=== PATIENT | male | born 1995 | race American Indian/Alaskan Native ===

== ENCOUNTER 2018-12-27 05:40 | Emergency (ER) | payer SELFPAY ==
[2018-12-27 05:45] VITALS: BP 145/96; PULSE 106
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
[2018-12-27 06:23] LABS: ANION GAP 14.8; CHLORIDE,CL 102 mmol/L (101-111); SODIUM,NA 139 mmol/L (135-145)
[2018-12-27 06:26] LABS: ACETAMINOPHEN < 10 ug/mL
== END 2018-12-27 06:53 ==
LOC: DL.ED 05:40
DX: S01.01XA Laceration without foreign body of scalp, initial encounter (principal); F15.10 Other stimulant abuse, uncomplicated; F17.210 Nicotine dependence, cigarettes, uncomplicated; Z88.1 Allergy status to other antibiotic agents; W22.8XXA Striking against or struck by other objects, initial encounter
CPT/HCPCS: 12001; 36415; 80053; 80305-QW; 81003; 85025; 99283; 99284; G0480

== ENCOUNTER 2020-07-27 16:05 | Emergency (ER) | payer SELFPAY ==
[2020-07-27] MEDS ORDERED: Succinylcholine 200 MG/10 ML MDV IV ONE (16:06)
[2020-07-27] MEDS ORDERED: Sodium Chloride 0.9% 10 ML Syringe FLUSH PRN (16:19)
[2020-07-27 16:29] VITALS: BP 96/60; PULSE 103
[2020-07-27] MEDS ORDERED: Etomidate 2 MG/ML 20 ML SDV IVPUSH ONE (16:30)
[2020-07-27] MEDS ORDERED: Midazolam 1 MG/ML 2 ML SDV IVPUSH ONE (16:30)
[2020-07-27] MEDS ORDERED: Sodium Chloride 0.9% 1,000 ML IV ONE (16:31)
[2020-07-27] MEDS ORDERED: Lactated Ringers 1,000 ML IV ONE (16:31)
--- NOTE | 2020-07-27 16:31 | CR ---
PROCEDURE INFORMATION: Exam: XR Chest Exam date and time: 07/27/2020 4:25 PM Age: 24 years old Clinical indication: Other: Tube placement; Additional info: Et tube placement TECHNIQUE: Imaging protocol: XR of the chest Views: 1 view. COMPARISON: CR CHEST 1 VIEW 08/22/2011 12:40 AM FINDINGS: Tubes, catheters and devices: Endotracheal tube is present 2.9 cm above the level the keren. Nasogastric tube is in place. Lungs: Atelectatic changes within the right lung base without focal pneumonia. Pleural spaces: There is no evidence of pneumothorax. There are no pleural effusions present. Heart/Mediastinum: Unremarkable. No cardiomegaly. Bones/joints: Unremarkable. IMPRESSION: 1. Endotracheal tube is present 2.9 cm above the level the keren. 2. Atelectatic changes within the right lung base without focal pneumonia. 3. There is no evidence of pneumothorax.
[2020-07-27 16:37] LABS: PTT,PARTIAL THROMBOPLSTIN TIME 20.6 SEC (22.0-34.0)
[2020-07-27 16:41] LABS: ACETAMINOPHEN 0 ug/mL (10-30 (Therapeutic)); CHLORIDE,CL 103 mmol/L (98-107); SODIUM,NA 142 mmol/L (136-145)
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
== END 2020-07-27 16:45 ==
LOC: DL.ED 16:05
DX: T71.162A Asphyxiation due to hanging, intentional self-harm, initial encounter (principal); F15.10 Other stimulant abuse, uncomplicated; F12.10 Cannabis abuse, uncomplicated; Z88.0 Allergy status to penicillin
CPT/HCPCS: 31500; 36415; 43752; 51702; 71045; 80053; 80143; 80179; 80305; 80307; 81001; 84484; 85025; 85610; 85730; 93005; 93010; 96360; 99285; J0330; J2250; J3490; J7030; J7120

== ENCOUNTER 2021-01-13 19:18 | Emergency (ER) | payer OTHER, MEDICAID ==
[2021-01-13 20:31] VITALS: BP 132/91; PULSE 88
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
== END 2021-01-13 21:36 | disposition home or self-care (01) ==
LOC: DL.ED 19:18
DX: S01.01XA Laceration without foreign body of scalp, initial encounter (principal); Z88.0 Allergy status to penicillin; Z72.0 Tobacco use; V49.40XA Driver injured in collision with unspecified motor vehicles in traffic accident, initial encounter; Y92.410 Unspecified street and highway as the place of occurrence of the external cause
CPT/HCPCS: 12001; 99284-25